=== PATIENT | female | born 1965 | race Caucasian/White ===

== ENCOUNTER 2018-11-04 19:33 | Inpatient (IN) | payer OTHER ==
[2018-11-04] MEDS: NITROGLYCERIN 50 MG/D5W (PMX) 250 ML IV (19:42)
[2018-11-04 19:46] LABS: ADD MAN DIFF? NO
[2018-11-04 19:50] LABS: WHITE BLOOD COUNT 10.1 10^3/ul (4.8-10.8)
[2018-11-04 19:50] LABS: BASOPHIL # 0.1 10^3/ul (0.0-0.1); BASOPHILS % 0.9 % (0.0-2.0); EOSINOPHILS # 0.7 10^3/ul (0.0-0.5); EOSINOPHILS % 7.3 % (0.0-7.0); HEMATOCRIT 39.1 % (37.0-47.0); HEMOGLOBIN 12.2 g/dl (12.0-16.0); LYMPHOCYTES # 4.3 10^3/ul (0.8-2.9); LYMPHOCYTES % 42.3 % (15.0-51.0); MEAN CORPUSCULAR HEMOGLOBIN 29.9 pg (29.0-33.0); MEAN CORPUSCULAR HGB CONC 31.2 g/dl (32.0-37.0); MEAN CORPUSCULAR VOLUME 95.8 fl (82.0-101.0); MEAN PLATELET VOLUME 10.3 fl (7.4-10.4); MONOCYTE # 0.4 10^3/ul (0.3-0.9); MONOCYTES % 4.3 % (0.0-11.0); NEUTROPHIL # 4.5 10^3/ul (1.6-7.5); NEUTROPHILS % 44.8 % (39.0-77.0); PLATELET COUNT 447 10^3/UL (140-415); RED BLOOD COUNT 4.08 10^6/ul (4.20-5.40); RED CELL DISTRIBUTION WIDTH 12.7 % (11.5-14.5)
[2018-11-04] MEDS: ONDANSETRON 4 MG INJ IV (19:51)
[2018-11-04] MEDS: ASPIRIN 81 MG TAB PO (19:52)
[2018-11-04] MEDS: morphine 4 MG/ML VIAL IV (19:52)
[2018-11-04 20:09] LABS: INR 0.92; PROTIME 12.5 Sec (11.9-14.9)
[2018-11-04 20:10] LABS: PARTIAL THROMBOPLASTIN TIME 32.3 Sec (23.0-35.0)
[2018-11-04 20:11] LABS: ALANINE AMINOTRANSFERASE 10 IU/L (13-69); ALBUMIN 4.9 g/dl (3.3-4.9); ALBUMIN/GLOBULIN RATIO 1.11; ALKALINE PHOSPHATASE 164 IU/L (42-121); ANION GAP 28 (5-13); ASPARTATE AMINO TRANSFERASE 40 IU/L (15-46); BLOOD UREA NITROGEN 64 mg/dl (7-20); CALCIUM 9.5 mg/dl (8.4-10.2); CARBON DIOXIDE 26 mmol/L (21-31); CHLORIDE 86 mmol/L (97-110); CREATININE 9.22 mg/dl (0.44-1.00); Estimated GFR 4 mL/min (>60); POTASSIUM 5.3 mmol/L (3.5-5.1); SODIUM 140 mmol/L (135-144); TOTAL PROTEIN 9.3 g/dl (6.1-8.1)
[2018-11-04 20:18] LABS: GLUCOSE 407 mg/dl (70-220)
[2018-11-04 20:22] LABS: B-TYPE NATRIURETIC PEPTIDE 28800 PG/ML (0-125); TROPONIN-I 0.024 ng/ml (0.000-0.120)
[2018-11-04 20:42] LABS: AADO2 Arterial 450.2 mmHg (7.0-24.0); Allen Test ACCEPTAB; Arterial Base Excess 1.4 mmol/L (-3.0-3); Arterial Blood Gas Oxygen Sat 98.7 mmHG (95.0-98.0); Arterial COHb 0.3 % (0.0-3.0); Arterial Fraction of Oxyhgb 98.1 % (93.0-99.0); Arterial HCO3 27.1 mmol/L (22.0-26.0); Arterial MetHb 0.3 % (0.0-1.5); Arterial pCO2 48.1 mmhg (35-45); Blood Gas IEPAP 15/5; MODE MASK - BIPAP; Site Right Radial
[2018-11-04] MEDS ORDERED: DOCUSATE SODIUM 100 MG CAP PO ×2 (22:30→23:00)
[2018-11-04] MEDS ORDERED: ALBUTEROL 0.083% (NEB) 2.5 MG/3 ML AMP HHN (22:30)
[2018-11-04] MEDS ORDERED: MAGNESIUM HYDROXIDE 30ML CUP PO (23:00)
[2018-11-04] MEDS: INSULIN LISPRO 100 UNIT/ML VIAL SC (23:30)
[2018-11-04] MEDS: FUROSEMIDE 40 MG INJ IV (23:34)
[2018-11-05 00:31] LABS: HEMOGLOBIN A1C 9.8 % (0-5.9)
[2018-11-05] MEDS: ACETAMINOPHEN 325 MG TAB PO ×3 (03:33→21:42)
[2018-11-05] MEDS ORDERED: NITROGLYCERIN 50 MG/D5W (PMX) 250 ML IV (06:00)
[2018-11-05 06:40] LABS: ADD MAN DIFF? NO
[2018-11-05 06:46] LABS: WHITE BLOOD COUNT 7.8 10^3/ul (4.8-10.8)
[2018-11-05 06:46] LABS: BASOPHIL # 0.1 10^3/ul (0.0-0.1); BASOPHILS % 0.8 % (0.0-2.0); EOSINOPHILS # 0.4 10^3/ul (0.0-0.5); EOSINOPHILS % 4.8 % (0.0-7.0); HEMATOCRIT 28.9 % (37.0-47.0); HEMOGLOBIN 9.5 g/dl (12.0-16.0); LYMPHOCYTES # 1.9 10^3/ul (0.8-2.9); LYMPHOCYTES % 23.9 % (15.0-51.0); MEAN CORPUSCULAR HEMOGLOBIN 30.4 pg (29.0-33.0); MEAN CORPUSCULAR HGB CONC 32.9 g/dl (32.0-37.0); MEAN CORPUSCULAR VOLUME 92.6 fl (82.0-101.0); MEAN PLATELET VOLUME 10.5 fl (7.4-10.4); MONOCYTE # 0.6 10^3/ul (0.3-0.9); MONOCYTES % 7.5 % (0.0-11.0); NEUTROPHIL # 4.9 10^3/ul (1.6-7.5); NEUTROPHILS % 62.7 % (39.0-77.0); PLATELET COUNT 332 10^3/UL (140-415); RED BLOOD COUNT 3.12 10^6/ul (4.20-5.40); RED CELL DISTRIBUTION WIDTH 12.7 % (11.5-14.5)
[2018-11-05] MEDS: LEVOFLOXACIN 500MG/D5W (PMX) 100 ML IVPB (07:09)
[2018-11-05 07:20] LABS: CK-MB 0.96 ng/ml (0.0-2.4); TROPONIN-I 0.057 ng/ml (0.000-0.120)
[2018-11-05 07:25] LABS: ALANINE AMINOTRANSFERASE 23 IU/L (13-69); ALBUMIN/GLOBULIN RATIO 1.21; ALKALINE PHOSPHATASE 121 IU/L (42-121); ANION GAP 8 (5-13); ASPARTATE AMINO TRANSFERASE 35 IU/L (15-46); BLOOD UREA NITROGEN 25 mg/dl (7-20); CALCIUM 9.3 mg/dl (8.4-10.2); CARBON DIOXIDE 34 mmol/L (21-31); CHLORIDE 97 mmol/L (97-110); CREATININE 3.24 mg/dl (0.44-1.00); Estimated GFR 15 mL/min (>60); GLUCOSE 118 mg/dl (70-220); MAGNESIUM 2.1 mg/dl (1.7-2.5); POTASSIUM 4.4 mmol/L (3.5-5.1); SODIUM 139 mmol/L (135-144); TOTAL PROTEIN 7.3 g/dl (6.1-8.1)
[2018-11-05 07:30] LABS: CK INDEX 2.2; CREATINE KINASE 44 IU/L (23-200)
[2018-11-05] MEDS: MULTIVIT/CA CARB/B CMPLX/FA TAB PO (08:08)
[2018-11-05] MEDS: PANTOPRAZOLE (EC) 40 MG TAB PO (08:08)
[2018-11-05] MEDS: ATENOLOL 50 MG TAB PO ×2 (08:09→20:19)
[2018-11-05] MEDS: FOLIC ACID 1 MG TAB PO (08:09)
[2018-11-05] MEDS: ASPIRIN (EC) 81 MG TAB PO (08:09)
[2018-11-05] MEDS: HEPARIN 5,000 UNIT/1 ML VIAL SC ×2 (08:10→20:17)
[2018-11-05] MEDS: CALCIUM ACETATE 667 MG CAP PO ×3 (08:12→17:16)
[2018-11-05] MEDS: INSULIN ASPART [NOVOLOG] 3 ML PEN SC ×4 (08:14→20:18)
[2018-11-05] MEDS: FAMOTIDINE 20 MG INJ IV (08:19)
[2018-11-05] MEDS: NITROGLYCERIN 50 MG/D5W (PMX) 250 ML IV ×2 (08:42→10:21)
[2018-11-05] MEDS: LORAZEPAM 1 MG TAB PO ×2 (09:52→17:16)
[2018-11-05] MEDS: ONDANSETRON 4 MG INJ IV ×2 (09:52→17:21)
[2018-11-05 10:51] LABS: CREATINE KINASE 46 IU/L (23-200)
[2018-11-05 11:00] LABS: CK INDEX 1.4; CK-MB 0.64 ng/ml (0.0-2.4); TROPONIN-I 0.052 ng/ml (0.000-0.120)
[2018-11-05] MEDS ORDERED: hydrALAzine 20 MG INJ (11:08)
[2018-11-05] MEDS: AMLODIPINE 5 MG TAB PO ×2 (11:15→20:19)
[2018-11-05] MEDS: hydrALAzine 20 MG INJ IV ×3 (11:15→21:11)
[2018-11-05] MEDS: LABETALOL HCL 20MG INJ IV ×2 (18:38→22:33)
[2018-11-05] MEDS ORDERED: GLUCOSE GEL 15 GRAM TUBE PO ×2 (23:45)
[2018-11-05] MEDS ORDERED: GLUCOSE GEL 15 GRAM TUBE BUCCAL (23:45)
[2018-11-05] MEDS ORDERED: DEXTROSE 50% 50 ML SYRINGE IV ×2 (23:45)
[2018-11-05] MEDS ORDERED: GLUCAGON 1 MG INJ IM (23:45)
[2018-11-05] MEDS: HYDROCODONE/APAP (5/325) TAB PO (23:58)
[2018-11-06] MEDS: hydrALAzine 20 MG INJ IV ×2 (01:36→15:48)
[2018-11-06 05:50] LABS: ALANINE AMINOTRANSFERASE 16 IU/L (13-69); ALBUMIN 4.2 g/dl (3.3-4.9); ALKALINE PHOSPHATASE 104 IU/L (42-121); ANION GAP 21 (5-13); ASPARTATE AMINO TRANSFERASE 28 IU/L (15-46); BLOOD UREA NITROGEN 39 mg/dl (7-20); CALCIUM 10.3 mg/dl (8.4-10.2); CARBON DIOXIDE 28 mmol/L (21-31); CHLORIDE 89 mmol/L (97-110); CREATININE 7.39 mg/dl (0.44-1.00); Estimated GFR 6 mL/min (>60); GLUCOSE 149 mg/dl (70-220); POTASSIUM 5.8 mmol/L (3.5-5.1); SODIUM 138 mmol/L (135-144)
[2018-11-06] MEDS: INSULIN ASPART [NOVOLOG] 3 ML PEN SC ×4 (07:35→20:57)
[2018-11-06 07:51] LABS: HEPATITIS B SURFACE ANTIGEN NEGATIVE (NEGATIVE)
[2018-11-06 08:09] LABS: HEPATITIS B SURFACE ANTIBODY POSITIVE (NEGATIVE)
[2018-11-06] MEDS: CALCIUM ACETATE 667 MG CAP PO ×3 (08:25→17:26)
[2018-11-06] MEDS: LORAZEPAM 1 MG TAB PO ×2 (08:33→15:48)
[2018-11-06] MEDS: ONDANSETRON 4 MG INJ IV ×2 (08:33→15:26)
[2018-11-06] MEDS ORDERED: LABETALOL 100 MG TAB PO (09:00)
[2018-11-06] MEDS: PANTOPRAZOLE (EC) 40 MG TAB PO (09:55)
[2018-11-06] MEDS: AMLODIPINE 5 MG TAB PO ×2 (09:56→20:54)
[2018-11-06] MEDS: LABETALOL 100 MG TAB PO ×2 (09:57→20:54)
[2018-11-06] MEDS: MULTIVIT/CA CARB/B CMPLX/FA TAB PO (11:44)
[2018-11-06] MEDS: ASPIRIN (EC) 81 MG TAB PO (11:45)
[2018-11-06] MEDS: FOLIC ACID 1 MG TAB PO (11:45)
[2018-11-06] MEDS: HEPARIN 5,000 UNIT/1 ML VIAL SC ×2 (11:47→20:57)
[2018-11-07] MEDS: LEVOFLOXACIN 500MG/D5W (PMX) 100 ML IVPB
[2018-11-07 07:15] LABS: ALANINE AMINOTRANSFERASE 19 IU/L (13-69); ALBUMIN 4.1 g/dl (3.3-4.9); ALBUMIN/GLOBULIN RATIO 1.17; ALKALINE PHOSPHATASE 94 IU/L (42-121); ANION GAP 15 (5-13); ASPARTATE AMINO TRANSFERASE 23 IU/L (15-46); BLOOD UREA NITROGEN 27 mg/dl (7-20); CALCIUM 9.7 mg/dl (8.4-10.2); CARBON DIOXIDE 28 mmol/L (21-31); CHLORIDE 95 mmol/L (97-110); Estimated GFR 7 mL/min (>60); GLUCOSE 173 mg/dl (70-220); POTASSIUM 4.9 mmol/L (3.5-5.1); SODIUM 138 mmol/L (135-144); TOTAL PROTEIN 7.6 g/dl (6.1-8.1)
[2018-11-07] MEDS: CALCIUM ACETATE 667 MG CAP PO ×3 (07:48→17:25)
[2018-11-07] MEDS: INSULIN ASPART [NOVOLOG] 3 ML PEN SC ×4 (07:52→21:00)
[2018-11-07] MEDS: FOLIC ACID 1 MG TAB PO (08:22)
[2018-11-07] MEDS: MULTIVIT/CA CARB/B CMPLX/FA TAB PO (08:22)
[2018-11-07] MEDS: ASPIRIN (EC) 81 MG TAB PO (08:22)
[2018-11-07] MEDS: PANTOPRAZOLE (EC) 40 MG TAB PO (08:22)
[2018-11-07] MEDS: AMLODIPINE 5 MG TAB PO ×2 (08:24→21:00)
[2018-11-07] MEDS: HEPARIN 5,000 UNIT/1 ML VIAL SC ×2 (08:29→21:03)
[2018-11-07] MEDS: LABETALOL 100 MG TAB PO ×2 (08:32→21:00)
[2018-11-08] MEDS: hydrALAzine 20 MG INJ IV (02:32)
[2018-11-08] MEDS: ACETAMINOPHEN 325 MG TAB PO (04:04)
[2018-11-08] MEDS: LORAZEPAM 1 MG TAB PO (04:11)
[2018-11-08] MEDS: INSULIN ASPART [NOVOLOG] 3 ML PEN SC ×2 (07:45→11:50)
[2018-11-08] MEDS: FOLIC ACID 1 MG TAB PO (08:34)
[2018-11-08] MEDS: ASPIRIN (EC) 81 MG TAB PO (08:34)
[2018-11-08] MEDS: PANTOPRAZOLE (EC) 40 MG TAB PO (08:34)
[2018-11-08] MEDS: MULTIVIT/CA CARB/B CMPLX/FA TAB PO (08:34)
[2018-11-08] MEDS: CALCIUM ACETATE 667 MG CAP PO ×2 (08:35→11:50)
[2018-11-08] MEDS: LABETALOL 100 MG TAB PO (08:36)
[2018-11-08] MEDS: AMLODIPINE 5 MG TAB PO (08:36)
[2018-11-08] MEDS: HEPARIN 5,000 UNIT/1 ML VIAL SC (08:43)
== END 2018-11-08 13:13 | disposition home or self-care (01) | DRG 291 ==
LOC: ICU 22:04 → E/R 19:33 → TEL 11-06 22:04
PROC: 5A1D70Z Performance of Urinary Filtration, Intermittent, Less than 6 Hours Per Day (ICD-10-PCS; principal; 2018-11-05)
DX: I13.2 Hypertensive heart and chronic kidney disease with heart failure and with stage 5 chronic kidney disease, or end stage renal disease (principal); J96.01 Acute respiratory failure with hypoxia; N18.6 End stage renal disease; I16.1 Hypertensive emergency; I50.30 Unspecified diastolic (congestive) heart failure; E11.22 Type 2 diabetes mellitus with diabetic chronic kidney disease; E11.65 Type 2 diabetes mellitus with hyperglycemia; Z99.2 Dependence on renal dialysis; E87.5 Hyperkalemia; E66.9 Obesity, unspecified; Z68.34 Body mass index [BMI] 34.0-34.9, adult; D63.8 Anemia in other chronic diseases classified elsewhere; Z87.891 Personal history of nicotine dependence
CPT/HCPCS: 36415; 36600; 70450; 71045; 80053; 82550; 82553; 82803; 82962; 83036; 83735; 83880; 84484; 85025; 85610; 85730; 86706; 87081; 87340; 90935; 93005; 94660; 96365; 96366; 96375; 99291-25